=== PATIENT | female | born 1985 ===

== ENCOUNTER 2020-03-19 07:00 | Observation (INO) | payer BC ==
[2020-03-19] MEDS ORDERED: Butorphanol Tartrate 1 MG/ML VIAL SLOW IVP PRN (08:21)
[2020-03-19] MEDS ORDERED: Ondansetron PF 4 MG/2 ML Vial IVP PRN (08:21)
[2020-03-19] MEDS ORDERED: NS / Oxytocin 40 units/1000ml 1,000 ML IV PRN (08:21)
[2020-03-19] MEDS ORDERED: Promethazine HCl 25 MG/ML VIAL IM PRN (08:21)
[2020-03-19] MEDS ORDERED: Misoprostol 200 MCG TAB PR PRN (08:21)
[2020-03-19] MEDS ORDERED: Ibuprofen 800 MG TAB PO PRN ×2 (08:21→13:00)
[2020-03-19] MEDS ORDERED: hydrALAZINE 20 MG/ML VIAL SLOW IVP PRN (08:21)
[2020-03-19] MEDS ORDERED: HYDROcodone/Acetaminophen 5/325 mg Tablet PO PRN ×2 (08:21)
[2020-03-19] MEDS ORDERED: Lidocaine 1% (PF) 30 ML VIAL SC PRN (08:21)
[2020-03-19] MEDS ORDERED: Lactated Ringer's 1,000 ML IV SCH ×2 (08:30)
[2020-03-19] MEDS ORDERED: Misoprostol 200 MCG TAB ONE ×2 (08:35→12:15)
[2020-03-19 08:37] LABS: #Eosinphils 0.1 thou/uL (0.0-0.7); #Lymphocytes 2.5 thou/uL (1.20-3.40); #Monocytes 0.5 thou/uL (0.11-0.59); %Basophils 0.1 % (0.0-1.0); %Eosinophils 0.7 % (0.0-10.0); %Lymphocytes 17.8 % (21.0-51.0); %Monocytes 3.3 % (0.0-10.0); %Neutrophils 78.1 % (42.0-75.0); Hemoglobin 12.1 g/dL (12.0-16.0); Mean Corpuscular HGB CONC 32.1 g/dL (32.0-36.0); Mean Corpuscular Hemoglobin 27.6 pg (27.0-31.0); Mean Corpuscular Volume 86.2 fL (78.0-98.0); Mean Platelet Volume 6.8 fL (7.4-10.4); Platelet Count 327 thou/uL (130-400); RBC Distribution Width 11.8 % (11.5-14.5); Red Blood Cell (RBC) Count 4.38 mill/uL (4.20-5.40); White Blood Cell (WBC) Count 14.1 thou/uL (4.8-10.8)
[2020-03-19] MEDS ORDERED: Butorphanol Tartrate 1 MG/ML VIAL ONE (08:53)
[2020-03-19] MEDS ORDERED: Ondansetron PF 4 MG/2 ML Vial ONE (09:02)
[2020-03-19 09:19] LABS: HBSAg Index 0.17 S/CO (0-0.99); Hep B Surf Ag Non-Reactive S/CO (NonReactive); Syphilis Antibody Nonreactive (Nonreactive); Syphilis Antibody Index 0.02 S/CO (<1.00 Non-Reactive)
[2020-03-19 09:20] VITALS: BP 122/67; BMI 41.5
--- NOTE | 2020-03-19 09:38 | HP ---
TIME OF SERVICE: 0840 hours. REASON FOR OBSERVATION ADMISSION: Spontaneous miscarriage at 17 weeks gestation. HISTORY OF PRESENT ILLNESS: Ms. Rockwell is a 34-year-old 2; para 0; AB1, now 2, at 17 weeks gestation with an IVF . She reports onset of cramps and some bleeding this morning and feeling a pressure with a bulging bag. She went to the bathroom and passed the fetus. She has not passed the placenta and continued to have some vaginal bleeding. [employer] HISTORY: PCOS, in vitro fertilization for this with normal PGD. Last ultrasound was a month ago with normal results. No history of cervical surgery. MEDICAL HISTORY: PCOS. SURGICAL HISTORY: Hysteroscopies. ALLERGIES: DENIES. MEDICATIONS: vitamins. SOCIAL HISTORY: Denies tobacco, alcohol, or IV drug use. FAMILY HISTORY: Noncontributory. REVIEW OF SYSTEMS: Noncontributory. PHYSICAL EXAMINATION: GENERAL: [place] female, in no acute distress. Morbidly obese. VITAL SIGNS: Blood pressure 128/72, pulse 95, respirations 18, temperature 98.2. HEENT: Within normal limits. LUNGS: Clear to auscultation bilaterally. HEART: Regular rate and rhythm. ABDOMEN: Soft and nontender except discomfort with suprapubic pressure. PELVIC: Perineum; the patient has significant amount of clots. Speculum exam reveals large amount of clots in the vagina. Umbilical cord is noted up to the level of the cervix. Placenta is not noted to be in the cervix at this time. LABORATORY DATA: White count is 14.1, slight increase in neutrophils at 78, hematocrit is 37.8%, platelets are 327. Blood type and antibody screen are pending. IMPRESSION: Incomplete at 17 weeks gestation, in vitro fertilization with a history of polycystic ovary syndrome. PLAN: Admission. Serial pad counts. Cytotec 800 per rectum placed. Now anticipate spontaneous delivery of placenta. If not within 2 to 3 hours, we would proceed with surgical intervention with D and C. Job ID: [id number]
[2020-03-19] MEDS ORDERED: Misoprostol 200 MCG TAB PO SCH (12:16)
--- NOTE | 2020-03-19 12:40 | PRG ---
DATE OF SERVICE: 03/19/2020 TIME OF SERVICE: 12:15. Ms. Diaz has not passed the placenta by approximately 10:30. Two attempts, one at approximately 10:15 and another at approximately 11:15 to remove the products of conception were unsuccessful. The patient has a tight nulliparous vagina, significant obesity and difficulty in visualization. QBL has been approximately 550 mL. The patient has remained stable throughout. She has received Cytotec per rectum 800 mcg on arrival to Labor and Delivery unit this morning and will repeat p.o. Cytotec 400 mcg x1. Operating room was called at approximately 10:30 and informed of the need to proceed with exam under anesthesia, and D and C, and removal of products of conception. The patient is not emergent at this time. However, the patient's status as an incomplete AB with retained products of conception was made clear to the operating room. The patient's QBL was notified to the operating room as well. I am waiting for availability of OR on the 1st floor for exam under anesthesia and D and C. Job ID: [id number]
[2020-03-19] MEDS ORDERED: Doxycycline 100 MG CAP PO SCH (13:00)
--- NOTE | 2020-03-19 13:00 | PDOC.OPDEL ---
OB Operative/Delivery Note Delivery Dr/Surgeon: Tawana Pre-Delivery Diagnosis: other (17week loss, possible cervical insufficiency) Procedure/Post Delivery Dx: other (manual extraction of placenta) Weeks gestation: 17 Anesthesia: none - Additional Findings/Plan Placenta delivered: manual removal Estimated blood loss: 900cc Compilations/Other Findings: Patient presented to ED with bulging membranes at introitus. Passed baby in toilet, Baby was alive on delivery, brought to L&D, cytotec 800mcg placed pr, no delivery of placenta spontaneously, manual delivery of placenta attempted multiple times by Dr Felix however pelvic bones were very android shape and narrow, placenta palpable at internal cervical os, cervix dilated 6cm. Additional 400mcg cytotec given po 4 hours later, QBL at that time 796cc. I came and checked patient, placenta felt bulging through cervix but not able to manually delivered due to narrow pubic bones and high cervix. Speculum placed and rings used to grasp placental tissue and shortly after teasing membranes out entire placenta was delivered. Bleeding was scant at cervical os after delivery. Patient tolerated well. Placenta to path. Post delivery plan: routine recovery
[2020-03-19 14:58] VITALS: TEMP 98
--- NOTE | 2020-03-20 10:05 | DIS ---
DATE OF ADMISSION: 03/19/2020 DATE OF DISCHARGE: 03/19/2020 TIME OF DISCHARGE: 0245 hours. HOSPITAL COURSE: Ms. Diaz presented and had a spontaneous loss at 17 weeks. Placenta was retained and was difficult to remove, however, was removed with the ring forceps by Dr. Gilliam at approximately 1230 hours. The patient's bleeding has decreased significantly afterwards. The patient's vital signs are stable and discharging her home. She is going to be discharged home on doxycycline 100 p.o. b.i.d. x5 days per Dr. Gilliam and will follow up with Dr. Gilliam. Job ID: [id number]
== END 2020-03-19 15:01 | disposition home or self-care (01) ==
LOC: ERS 07:00 → L&D/OP 07:53 → L&D 08:22
PROVIDERS: ADMIT Obstetrics & Gynecology; ATTEND Obstetrics & Gynecology
PROC: 10D17Z9 Manual Extraction of Products of Conception, Retained, Via Natural or Artificial Opening (ICD-10-PCS; principal; 2020-03-19)
DX: O03.1 Delayed or excessive hemorrhage following incomplete spontaneous abortion (principal); O41.1220 Chorioamnionitis, second trimester, not applicable or unspecified; E28.2 Polycystic ovarian syndrome; E66.9 Obesity, unspecified; Z68.41 Body mass index [BMI] 40.0-44.9, adult; Z79.82 Long term (current) use of aspirin; Z79.84 Long term (current) use of oral hypoglycemic drugs; Z37.0 Single live birth
CPT/HCPCS: 36415; 85025; 86780; 86850; 86900; 86901; 87340; 88300; 88305; 96375; 99285; G0378; J0595; J2405